=== PATIENT | male | born 1980 | race Caucasian/White ===

== ENCOUNTER 2019-04-05 04:48 | Day surgery (SDC) | payer BC ==
[2019-04-05] MEDS ORDERED: FENTANYL CITR 100 MCG/2 ML ONE ×3 (05:51→11:21)
[2019-04-05 05:58] LABS: Absolute Lymphocytes (CBC) 1.6 K/uL (0.7-4.9); Basophils % 0.4 % (0-1.3); Eosinophils % 2.5 % (0-4.4); Hematocrit 44.1 % (39.6-49.0); Lymphocytes % 10.4 % (15.3-44.8); MPV 9.8 fL (7.6-11.3); Monocytes % 6.9 % (3.3-12.3); RBC Red Blood Cell Count 5.14 M/uL (4.33-5.43)
[2019-04-05 06:10] LABS: ALT/SGPT 26 U/L (12-78); AST/SGOT 16 U/L (15-37); Albumin 3.7 g/dL (3.4-5.0); Alkaline Phosphatase 85 U/L (45-117); BUN Blood Urea Nitrogen 9 mg/dL (7-18); Bicarbonate 27 mmol/L (21-32); Bilirubin Direct < 0.1 mg/dL (0-0.2); Bilirubin Total 0.3 mg/dL (0.2-1.0); Glucose Level 118 mg/dL (74-106); Lipase 138 U/L (73-393); Potassium 3.8 mmol/L (3.5-5.1); Protein, Total 7.1 g/dL (6.4-8.2); Sodium Level 142 mmol/L (136-145)
[2019-04-05 06:12] LABS: Urine Mucus 1+ /HPF (NONE SEEN)
[2019-04-05 06:13] LABS: Urine Bacteria <20 /HPF (NONE SEEN); Urine Culture Reflex Order NOT NEEDED; Urine RBC <5 /HPF (NONE SEEN)
[2019-04-05] MEDS ORDERED: ONDANSETRON 4 MG/2 ML VIAL ONE ×2 (06:42→11:06)
[2019-04-05] MEDS ORDERED: MORPHINE 4 MG/ML SYR ONE (06:42)
--- NOTE | 2019-04-05 08:25 | RAD REPORT ---
EXAM DESCRIPTION: CTAbdomen Pelvis W Contrast - 04/05/2019 6:43 am CLINICAL HISTORY: Abdominal pain. ABD PAIN COMPARISON: No comparisons TECHNIQUE: Biphasic CT imaging of the abdomen and pelvis was performed with 100 ml non-ionic IV cont rast. All CT scans are performed using dose optimization technique as appropriate and may include automated exposure control or mA/KV adjustment according to patient size. FINDINGS: The lung bases are clear. The liver, spleen, pancreas, adrenal glands and kidneys are within normal limits. No bowel obstruction, free air, free fluid or abscess. Several appendicoliths are present the base o f the appendix. The appendix appears dilated to 12 mm with surrounding inflammation compatible with a cute appendicitis. Small containing umbilical hernia. Small bilateral inguinal hernias, larger on the left. No evidence of significant lymphadenopathy. No suspicious bony findings. IMPRESSION: Acute appendicitis.
--- NOTE | 2019-04-05 08:48 | ER ---
Nurse's Notes [facility] Name: Mahad Marks Age: 38 yrs Sex: Male : 1980 Arrival Date: 04/05/2019 Time: 04:52 Bed 6 Private MD: Diagnosis: Acute appendicitis Presentation: 04/05 05:04 Presenting complaint: Patient states: lower abdominal cramping since midnight, radiates tl2 to right side. Pt denies diarrhea, nausea or vomiting. Transition of care: patient was not received from another setting of care. Onset of symptoms was April 05, 2019 at 00:00. Risk Assessment: Do you want to hurt yourself or someone else? Patient reports no desire to harm self or others. Initial Sepsis Screen: Does the patient meet any 2 criteria? No. Patient's initial sepsis screen is negative. Does the patient have a suspected source of infection? No. Patient's initial sepsis screen is negative. Care prior to arrival: None. 05:04 Method Of Arrival: Ambulatory tl2 05:04 Acuity: JORDIN 3 tl2 Triage Assessment: 05:05 General: Appears in no apparent distress. uncomfortable, Behavior is calm, cooperative, tl2 appropriate for age. Pain: Complains of pain in right lower quadrant and left lower quadrant Pain radiates to left side Pain currently is 8 out of 10 on a pain scale. Quality of pain is described as crampy. Neuro: Level of Consciousness is awake, alert, obeys commands, Oriented to person, place, time, situation. GI: Reports lower abdominal pain, cramping, Patient currently denies diarrhea, nausea, vomiting. Historical: - Allergies: 05:05 Codeine; tl2 - Home Meds: 05:05 Metoprolol Tartrate Oral [Active]; Lisinopril Oral [Active]; Dexilant oral oral tl2 [Active]; - PMHx: 05:05 GERD; Hypertension; tl2 - PSHx: 05:05 None; tl2 - Immunization history:: Adult Immunizations up to date. - Social history:: Smoking status: Patient/guardian denies using tobacco. - Ebola Screening: : No symptoms or risks identified at this time. Screenin:07 Abuse screen: Denies threats or abuse. Nutritional screening: No deficits noted. tl2 Tuberculosis screening: No symptoms or risk factors identified. Fall Risk None identified. Assessment: 05:40 General: Appears uncomfortable, Behavior is calm, cooperative, appropriate for age. ea Pain: Complains of pain in left lower quadrant and right lower quadrant. Neuro: Level of Consciousness is awake, alert, obeys commands, Oriented to person, place, time, situation. Cardiovascular: Patient's skin is warm and dry. Respiratory: Airway is patent Respiratory effort is even, unlabored, Respiratory pattern is regular, symmetrical. GI: Abdomen is flat, non-distended, Bowel sounds present X 4 quads. Abd is soft and non tender X 4 quads. Reports lower abdominal pain. Derm: Skin is pink, warm \T\ dry. Musculoskeletal: Circulation, motion, and sensation intact. 06:40 Reassessment: Patient and/or family updated on plan of care and expected duration. Pain ea level reassessed. Patient is alert, oriented x 3, equal unlabored respirations, skin warm/dry/pink. Pt taken to CT. Vital Signs: 05:05 BP 183 / 114; Pulse 86; Resp 18; Temp 98.6(O); Pulse Ox 100% on R/A; Weight 106.59 kg; tl2 Height 6 ft. 1 in. (185.42 cm); Pain 8/10; 06:50 BP 156 / 102; Pulse 80; Resp 18; Pulse Ox 99% on R/A; ea 05:05 Body Mass Index 31.00 (106.59 kg, 185.42 cm) tl2 ED Course: 04:52 Patient arrived in ED. ds1 05:04 Triage completed. tl2 05:05 Arm band placed on right wrist. tl2 05:07 Loan Brooks, RN is Primary Nurse. ea 05:07 Patient has correct armband on for positive identification. Bed in low position. Call tl2 light in reach. Side rails up X 1. Adult w/ patient. 05:29 Mahad Lopez MD is Attending Physician. gs 05:45 Inserted saline lock: 22 gauge in right antecubital area, using aseptic technique. ea Blood collected. 05:49 Radiology exam delayed due to lab results not completed at this time. (BUN/Creatinine). eh 06:[address] via wheelchair. eh 06:43 CT completed. Patient tolerated procedure well. Patient moved back from CT. eh 06:45 CT Abd/Pelvis - IV Contrast Only In Process Unspecified. EDMS 07:00 IV is patent, is intact, with good blood return, Flushed right forearm with 5 ml normal sg saline. IV 20 G R Forearm. 07:18 Primary Nurse role handed off by Loan Brooks RN sg 07:18 Diego Yanez RN is Primary Nurse. sg 07:25 Attending Physician role handed off by Mahad Lopez MD kdr 07:25 Miko Alcaraz MD is Attending Physician. kdr 08:47 Igor Garibay MD is Hospitalizing Provider. kdr 09:16 Consulted physician to see patient. . sg 09:49 No provider procedures requiring assistance completed. Patient admitted, IV remains in sg place. intact, No redness/swelling at site. Administered Medications: 05:45 Drug: fentaNYL (PF) 75 mcg Route: IVP; Site: right forearm; ea 06:14 Follow up: Response: No adverse reaction; Pain is decreased ea 06:30 Drug: morphine 4 mg Route: IVP; Site: right forearm; ea 06:55 Follow up: Response: No adverse reaction; Pain is decreased ea 06:30 Drug: Zofran 4 mg Route: IVP; Site: right forearm; ea 06:55 Follow up: Response: No adverse reaction; Marked relief of symptoms ea 09:10 Drug: Flagyl 500 mg Volume: 100 ml; Route: IVPB; Rate: 200 ml/hr; Infused Over: 30 sg mins; Site: right forearm; 09:10 Drug: morphine 4 mg Route: IVP; Site: right forearm; sg 09:15 Drug: Zosyn 3.375 grams Route: IVPB; Infused Over: 60 mins; Site: right forearm; sg 09:15 Drug: NS 0.9% 1000 ml Route: IV; Rate: 1 bolus; Site: right forearm; sg Outcome: 08:47 Decision to Hospitalize by Provider. kdr 09:49 Admitted to OR accompanied by nurse, accompanied by tech, family with patient, via sg stretcher, with chart. 09:49 Condition: stable 09:49 Instructed on the need for admit, safety practices. 09:49 Patient left the ED. Signatures: Dispatcher [employer] EDMS Diego Yanez RN RN Miko Alcaraz MD MD [facility] Angel Shrestha Tracie Maynard ds1 Liza Barrow RN RN tl2 Loan Brooks RN RN Mahad Barriga MD MD gs
--- NOTE | 2019-04-05 08:49 | EDPHYS ---
Physician Documentation [facility] Name: Mahad Marks Age: 38 yrs Sex: Male : 1980 Arrival Date: 04/05/2019 Time: 04:52 Bed 6 Private MD: ED Physician Miko Alcaraz HPI: 04/05 06:27 This 38 yrs old Male presents to ER via Ambulatory with complaints of gs Abdominal Pain. 06:27 The patient presents with abdominal pain that is diffuse. Onset: The symptoms/episode gs began/occurred yesterday, at 19:00. The symptoms do not radiate. Associated signs and symptoms: Pertinent positives: nausea. The symptoms are described as sharp. Modifying factors: The symptoms are alleviated by nothing, the symptoms are aggravated by movement. Severity of pain: At its worst the pain was severe in the emergency department the pain has improved mildly. The patient has not experienced similar symptoms in the past. Historical: - Allergies: 05:05 Codeine; tl2 - Home Meds: 05:05 Metoprolol Tartrate Oral [Active]; Lisinopril Oral [Active]; Dexilant oral oral tl2 [Active]; - PMHx: 05:05 GERD; Hypertension; tl2 - PSHx: 05:05 None; tl2 - Immunization history:: Adult Immunizations up to date. - Social history:: Smoking status: Patient/guardian denies using tobacco. - Ebola Screening: : No symptoms or risks identified at this time. ROS: 06:27 All other systems are negative. gs 08:48 Constitutional: Negative for fever, chills, and weight loss, Eyes: Negative for injury, kdr pain, redness, and discharge. 08:48 Abdomen/GI: Positive for abdominal pain, vomiting, Negative for black/tarry stool, rectal pain, rectal bleeding. Exam: 06:27 Head/Face: Normocephalic, atraumatic. Eyes: Pupils equal round and reactive to light, gs extra-ocular motions intact. Lids and lashes normal. Conjunctiva and sclera are non-icteric and not injected. Cornea within normal limits. Periorbital areas with no swelling, redness, or edema. ENT: Nares patent. No nasal discharge, no septal abnormalities noted. Tympanic membranes are normal and external auditory canals are clear. Oropharynx with no redness, swelling, or masses, exudates, or evidence of obstruction, uvula midline. Mucous membranes moist. Neck: Trachea midline, no thyromegaly or masses palpated, and no cervical lymphadenopathy. Supple, full range of motion without nuchal rigidity, or vertebral point tenderness. No Meningismus. Chest/axilla: Normal chest wall appearance and motion. Nontender with no deformity. No lesions are appreciated. Cardiovascular: Regular rate and rhythm with a normal S1 and S2. No gallops, murmurs, or rubs. Normal PMI, no JVD. No pulse deficits. Respiratory: Lungs have equal breath sounds bilaterally, clear to auscultation and percussion. No rales, rhonchi or wheezes noted. No increased work of breathing, no retractions or nasal flaring. Back: No spinal tenderness. No costovertebral tenderness. Full range of motion. Male : Normal genitalia with no discharge or lesions. Skin: Warm, dry with normal turgor. Normal color with no rashes, no lesions, and no evidence of cellulitis. MS/ Extremity: Pulses equal, no cyanosis. Neurovascular intact. Full, normal range of motion. Neuro: Awake and alert, GCS 15, oriented to person, place, time, and situation. Cranial nerves II-XII grossly intact. Motor strength 5/5 in all extremities. Sensory grossly intact. Cerebellar exam normal. Normal gait. 06:27 Constitutional: The patient appears alert, awake, uncomfortable. 06:27 Abdomen/GI: Palpation: moderate abdominal tenderness, in the right lower quadrant, rebound tenderness, is not appreciated, Indicators: Rovsing's sign is positive. Vital Signs: 05:05 BP 183 / 114; Pulse 86; Resp 18; Temp 98.6(O); Pulse Ox 100% on R/A; Weight 106.59 kg; tl2 Height 6 ft. 1 in. (185.42 cm); Pain 8/10; 06:50 BP 156 / 102; Pulse 80; Resp 18; Pulse Ox 99% on R/A; ea 05:05 Body Mass Index 31.00 (106.59 kg, 185.42 cm) tl2 MDM: 05:29 Patient medically screened. gs 06:27 Differential diagnosis: appendicitis, bowel obstruction, non-specific abd pain, gs pancreatitis. Data reviewed: vital signs, nurses notes, lab test result(s), radiologic studies. Counseling: I had a detailed discussion with the patient and/or guardian regarding: the historical points, exam findings, and any diagnostic results supporting the discharge/admit diagnosis, lab results, radiology results. 04/05 05:30 Order name: Basic Metabolic Panel; Complete Time: 06:24 04/05 05:30 Order name: CBC with Diff; Complete Time: 06:24 04/05 05:30 Order name: Hepatic Function; Complete Time: 06:24 04/05 05:30 Order name: Lipase; Complete Time: 06:24 04/05 05:30 Order name: Urine Microscopic Only; Complete Time: 06:24 04/05 05:57 Order name: Urine Dipstick--Ancillary (enter results) lp1 04/05 05:30 Order name: CT Abd/Pelvis - IV Contrast Only; Complete Time: 08:40 04/05 05:30 Order name: IV Saline Lock; Complete Time: 05:55 04/05 05:30 Order name: Labs collected and sent; Complete Time: 05:55 04/05 05:30 Order name: Urine Dipstick-Ancillary (obtain specimen); Complete Time: 05:55 04/05 08:56 Order name: NPO EDMS Administered Medications: 05:45 Drug: fentaNYL (PF) 75 mcg Route: IVP; Site: right forearm; ea 06:14 Follow up: Response: No adverse reaction; Pain is decreased ea 06:30 Drug: morphine 4 mg Route: IVP; Site: right forearm; ea 06:55 Follow up: Response: No adverse reaction; Pain is decreased ea 06:30 Drug: Zofran 4 mg Route: IVP; Site: right forearm; ea 06:55 Follow up: Response: No adverse reaction; Marked relief of symptoms ea 09:10 Drug: Flagyl 500 mg Volume: 100 ml; Route: IVPB; Rate: 200 ml/hr; Infused Over: 30 sg mins; Site: right forearm; 09:10 Drug: morphine 4 mg Route: IVP; Site: right forearm; sg 09:15 Drug: Zosyn 3.375 grams Route: IVPB; Infused Over: 60 mins; Site: right forearm; sg 09:15 Drug: NS 0.9% 1000 ml Route: IV; Rate: 1 bolus; Site: right forearm; sg Disposition: 04/05/19 08:47 Hospitalization ordered by Igor Garibay for Inpatient Admission. Preliminary diagnosis is Acute appendicitis. - Bed requested for Telemetry/MedSurg (Inpatient). - Status is Inpatient Admission. sg - Condition is Fair. - Problem is new. - Symptoms have improved. UTI on Admission? No Signatures: Dispatcher [employer] EDMS Diego Yanez RN RN sg Miko Alcaraz MD MD kdr Liza Barrow RN RN tl2 Loan Brooks RN RN Mahad Lopez MD MD gs Corrections: (The following items were deleted from the chart) 09:49 08:47 Hospitalization Ordered by Igor Garibay MD for Inpatient Admission. Preliminary sg diagnosis is Acute appendicitis. Bed requested for Telemetry/MedSurg (Inpatient). Status is Inpatient Admission. Condition is Fair. Problem is new. Symptoms have improved. UTI on Admission? No. kdr
[2019-04-05] MEDS ORDERED: MORPHINE 4 MG/ML SYR IV PRN (08:52)
[2019-04-05] MEDS ORDERED: ONDANSETRON 4 MG/2 ML VIAL IV PRN (08:52)
[2019-04-05] MEDS ORDERED: ACETAMINOPHEN 500 MG TAB PO PRN (08:52)
[2019-04-05] MEDS: D5 0.45 NS 1,000 ML IV SCH ×2 (09:00→17:00)
[2019-04-05] MEDS ORDERED: METRONIDAZOLE 500mg IVPB 500 MG/100 ML BAG IV ONE (09:19)
[2019-04-05] MEDS ORDERED: PIPER/TAZO/NS 3.375gm 3.375 GM/100 ML BAG ONE (09:19)
[2019-04-05 09:36] LABS: Urine Blood NEGATIVE (NEG); Urine Glucose NEGATIVE (NEG); Urine Protein 1+ (NEG); Urine Specific Gravity 1.025 (1.005-1.030)
[2019-04-05] MEDS ORDERED: PROPOFOL 200 MG/20 ML VIAL IV ONE ×2 (10:24→10:41)
[2019-04-05] MEDS ORDERED: LIDOCAINE 2% MPF 5 ML VIAL ONE (10:24)
[2019-04-05] MEDS ORDERED: MIDAZOLAM HCL 2 MG/2 ML INJ ONE (10:24)
[2019-04-05] MEDS ORDERED: ROCURONIUM 50 MG/5 ML VIAL IV ONE (10:24)
[2019-04-05] MEDS ORDERED: Ringers Lactate 1,000 ML IV ONE ×2 (10:25→11:48)
[2019-04-05] MEDS ORDERED: dexAMETHasone 4 MG/ML VIAL ONE (11:06)
[2019-04-05] MEDS ORDERED: GLYCOPYRROLATE 0.2 MG/ML SYR ONE (11:17)
[2019-04-05] MEDS ORDERED: NEOSTIGMINE 1 MG/ML -10 ML VIAL ONE (11:20)
[2019-04-05] MEDS: MEPERIDINE HCL 25 MG/0.5 ML ONE ×2 (11:25→11:35)
--- NOTE | 2019-04-05 15:24 | HP ---
Date of Admission: 04/05/2019 Diagnosis: Acute appendicitis. History Of Present Illness: This is the case of a 38-year-old patient, who comes to us with abdomina l pain, started in the periumbilical area, moved to the right lower quadrant since yesterday about 6 o'clock in the afternoon. He denies any dysuria, hematuria, hematochezia, or melena. He denies any recent traveling out of the country. Denies any family member sick at home. He comes a few hours ag o to the ER since the pain was not getting better. Allergies: CODEINE. Medication: Metoprolol. Medical Problems: Hypertension, GERD. Past Surgical History: None. Social History: He does not smoke. He does not alcohol. Review of Systems: Ten points, otherwise unremarkable. Physical Examination: General: The patient is awake and alert. HEENT: Pupils are equal and reactive, anicteric. Neck: Supple. Chest: Clear. Heart: S1, S2. Abdomen: Right lower quadrant tenderness. No Rovsing sign, but psoas sign is positive. Rectal: Deferred. Genitalia: Deferred. Extremities: Good capillary refill. Neuro: Cranial nerves 2 through 12 grossly within normal limits. Laboratory Data: Blood work shows WBC count of 15, hemoglobin of 14.7, platelets of 203. Chloride i s 109, glucose 118. CAT scan of abdomen and pelvis interpreted by Dr. Alves as acute appendicitis. Also the patient expla ined about the hernias, umbilical and inguinal. Recommendation: The benefits, alternatives, and risks of laparoscopic, possible open appendectomy fu lly explained to the patient, which include but are not limited to infection, bleeding, damage to adj acent structures, anesthesia complication, ME, and even . He also understands this may not reli valeriano his symptoms. He might need more than one surgical intervention. He was also explained when thi s emergency is over he would have to discuss with the primary doctor also his options to have his her nias repair electively. ESAU/TERENCE Voice ID: [id number]
--- NOTE | 2019-05-02 00:53 | OP ---
Date of Procedure: 04/05/2019 Surgeon: Igor Garibay MD Preoperative Diagnosis: Acute appendicitis. Postoperative Diagnoses: Acute appendicitis plus incarcerated umbilical hernia. Procedures: 1.Laparoscopic appendectomy. 2.Open repair of incarcerated umbilical hernia. Anesthesia: General plus local. Findings: Hernia sac in the umbilical area and also with omentum incarceration and also acute append icitis. Indications: This is the case of a 38-year-old patient, comes to the ER, complaining of above diagno sis. I have fully explained the benefits, alternatives, and risks of laparoscopic, possible open elpidio endectomy which include but are not limited to infection, bleeding, damage to adjacent structures, an esthesia complication, UT and even . He also understands this may not relieve the symptoms. He might need more than one surgical intervention. He understands different options he has. He had so me inguinal hernias. I discussed with him to bring it up to my office. We may have to defer that el ectively. Right now, we have an emergency and we have to deal with. So, the benefits and risks full y explained once again. He understood and signed the consent. Description Of Procedure: The patient was brought to the operating room, placed in supine position. Anesthesia was done without complication. Abdominal area was prepped and draped in the usual steril e fashion. Marcaine 0.5% was injected for local anesthetic, followed by sharp incision in the skin i n the periumbilical region. Incision was carried down to subcutaneous tissue. We noticed a hernia s ac present. We opened the hernia sac. Noticed incarcerated omentum. Some adhesions were carefully removed. The omentum was retracted back into the abdominal cavity. Hernia sac was removed. The inc ision was extended to accommodate the Jorge Luis trocar. Vicryl #1 placed inside of the fascia. Jorge Luis trocar was carefully introduced. Pneumoperitoneum was obtained. After that, I placed 2 more trocars , 5 mm each one of them, one in the suprapubic area, another one in the left lower quadrant using miguel e technique, which consisted of local anesthetic, sharp incision of the skin, and introduction of the trocars under direct vision. This allowed me to visualize the area of the appendix and looks inflam ed. So, we created a window in the base of the appendix, transected that with an Endo-LEATHA 45 mm 3.5, and the mesoappendix with an Endo-LEATHA 45 mm 2.5. Appendix removed from abdominal cavity using an En doCatch through the umbilical incision. The area was inspected once again. No bowel leak. No bleed ing at that moment. I proceeded to remove the trocars under direct vision. Deflated the pneumoperit oneum. Closed the fascia with #1 Vicryl. Closed the umbilical hernia also with #1 Vicryl. Irrigate d subcutaneous tissue, closed that with 3-0 Chromic and the skin was approximated. Sponge count and instrument counts were correct. The patient tolerated the procedure well. The patient was sent to r ecovery in stable condition. ESAU/TERENCE Voice ID: [id number] Report ID: [id number]
== END 2019-04-05 18:23 | disposition home or self-care (01) ==
LOC: ER 04:48 → ERHOLD 09:40 → DS 09:40 → UNDOADMIN 09:40 → 4TH 12:04 → DS 18:23
PROVIDERS: ATTEND Surgery
PROC: 0WQF0ZZ Repair Abdominal Wall, Open Approach (ICD-10-PCS; 2019-04-05)
PROC: 0DTJ4ZZ Resection of Appendix, Percutaneous Endoscopic Approach (ICD-10-PCS; principal; 2019-04-05 09:30)
DX: K35.80 Unspecified acute appendicitis (principal); K42.0 Umbilical hernia with obstruction, without gangrene; I10 Essential (primary) hypertension; K21.9 Gastro-esophageal reflux disease without esophagitis; Z79.899 Other long term (current) drug therapy
CPT/HCPCS: 36415; 74177; 80048; 80076; 81003; 81015; 83690; 85025; 88302; 88304; 96374; 96375; 99285; J2175; J2250; J2405; J2543; J2704; J2710; J3010; Q9967

== ENCOUNTER 2020-01-31 15:49 | Emergency (ER) | payer BC ==
--- OUTSIDE RECORDS SUMMARY | 2020-01-31 15:51 | XMS REPORT ---
:1980 Author Organization [facility] t Address [address] [place] [address] Dr. Charles. [address] [place] [id number] Care Team Providers Name Role Phone DR STEPHANIE Unavailable Unavailable Problems This patient has no known problems. Allergies, Adverse Reactions, Alerts This patient has no known allergies or adverse reactions. Medications This patient has no known medications. Encounters Start End Encounter Admission Attending Care Care Encounter Date/Time Date/Time Type Type Clinicians Facility Department ID 2019-09-26 2019-09-26 Outpatient [facility] Bushra [id number] 07:36:00 13:00:00
--- NOTE | 2020-01-31 16:32 | ER ---
Nurse's Notes [facility] Name: Mahad Marks Age: 39 yrs Sex: Male : 1980 Arrival Date: 01/31/2020 Time: 15:49 Bed 13 Private MD: Ambrosio Rodriguez Diagnosis: Person with feared health complaint in whom no diagnosis is made Presentation: 01/30 16:03 Chief complaint: Patient states: "I take testosterone shots every two weeks, a friend vc was giving me my shot and the needle came off the syringe into me. We looked on the ground to see if it fell off but could not find it.". Coronavirus screen: Proceed with normal triage. Ebola Screen: No symptoms or risks identified at this time. Initial Sepsis Screen: Does the patient meet any 2 criteria? No. Patient's initial sepsis screen is negative. Does the patient have a suspected source of infection? No. Patient's initial sepsis screen is negative. Risk Assessment: Do you want to hurt yourself or someone else? Patient reports no desire to harm self or others. Onset of symptoms was January 31, 2020. 16:03 Method Of Arrival: Ambulatory vc 16:03 Acuity: JORDIN 4 vc Historical: - Allergies: 16:10 Codeine; vc - Home Meds: 16:10 Dexilant Oral [Active]; lisinopril Oral [Active]; Metoprolol Tartrate Oral [Active]; vc testosterone IM [Active]; - PMHx: 16:10 GERD; Hypertension; Hyperlipidemia; vc - PSHx: 16:10 Appendectomy; vc - Immunization history:: Adult Immunizations up to date. - Social history:: Smoking status: Patient denies any tobacco usage or history of. Assessment: 16:29 Reassessment: Patient states that the needle is still in syringe. Medical screening vc shows no emergency, patient declines treatment. Vital Signs: 16:03 BP 120 / 96; Pulse 72; Resp 17; Temp 98.6(TE); Pulse Ox 99% on R/A; Weight 102.06 kg; vc Height 6 ft. 0 in. (182.88 cm); 16:03 Body Mass Index 30.52 (102.06 kg, 182.88 cm) vc ED Course: 15:49 Patient arrived in ED. am2 15:50 Ambrosio Rodriguez MD is Private Physician. am2 15:57 Margarita Kwok, RN is Primary Nurse. 16:05 [facility] 16:05 Eric Tom MD is Attending Physician. [facility] 16:07 Triage completed. vc Administered Medications: No medications were administered Outcome: 16:30 Discharge ordered by . [facility] 16:32 Patient left the ED. vc Signatures: Ed Warren PA PA [facility] Kayla Fay 2 Margarita Kwok, RN RN vc
--- NOTE | 2020-01-31 16:32 | EDPHYS ---
Physician Documentation [facility] Name: Mahad Marks Age: 39 yrs Sex: Male : 1980 Arrival Date: 01/31/2020 Time: 15:49 Bed 13 Private MD: Ambrosio Rodriguez ED Physician Eric Tom HPI: 01/30 16:11 This 39 yrs old Male presents to ER via Ambulatory with complaints of Foreign jmm Body - needle in buttock. 16:11 Onset: The symptoms/episode began/occurred acutely, just prior to arrival. The patient jmm has not experienced similar symptoms in the past. This is a 39 year old male with a history of GERD, HTN, HLP that presents to the ED with complaints of needle stuck on his buttocks after a testosterone injection. . Historical: - Allergies: 16:10 Codeine; vc - Home Meds: 16:10 Dexilant Oral [Active]; lisinopril Oral [Active]; Metoprolol Tartrate Oral [Active]; vc testosterone IM [Active]; - PMHx: 16:10 GERD; Hypertension; Hyperlipidemia; vc - PSHx: 16:10 Appendectomy; vc - Immunization history:: Adult Immunizations up to date. - Social history:: Smoking status: Patient denies any tobacco usage or history of. ROS: 16:11 Constitutional: Negative for fever, chills, and weight loss, Cardiovascular: Negative jmm for chest pain, palpitations, and edema, Respiratory: Negative for shortness of breath, cough, wheezing, and pleuritic chest pain. 16:11 MS/extremity: Positive for fb sensation. 16:11 All other systems are negative. Exam: 16:11 Constitutional: This is a well developed, well nourished patient who is awake, alert, jmm and in no acute distress. Head/Face: atraumatic. Eyes: EOMI, no conjunctival erythema appreciated ENT: Moist Mucus Membranes Neck: Trachea midline, Supple Chest/axilla: Normal chest wall appearance and motion. Cardiovascular: Regular rate and rhythm. No edema appreciated Respiratory: Normal respirations, no respiratory distress appreciated Abdomen/GI: Non distended, soft Back: Normal ROM Skin: General appearance color normal MS/ Extremity: Moves all extremities, no obvious deformities appreciated, no edema noted to the lower extremities Neuro: Awake and alert, normal gait Psych: Behavior is normal, Mood is normal, Patient is cooperative and pleasant Vital Signs: 16:03 BP 120 / 96; Pulse 72; Resp 17; Temp 98.6(TE); Pulse Ox 99% on R/A; Weight 102.06 kg; vc Height 6 ft. 0 in. (182.88 cm); 16:03 Body Mass Index 30.52 (102.06 kg, 182.88 cm) vc MDM: 16:11 Patient medically screened. [facility] 16:11 Data reviewed: vital signs, nurses notes. [facility] 16:11 Counseling: I had a detailed discussion with the patient and/or guardian regarding: the [facility] historical points, exam findings, and any diagnostic results supporting the discharge/admit diagnosis, the need for outpatient follow up, to return to the emergency department if symptoms worsen or persist or if there are any questions or concerns that arise at home. ED course: RN notified the patient the syringe has a retractable needle. Needle was revealed to still be in the syringe. . Administered Medications: No medications were administered Disposition: 01/31 07:17 Co-signature as Attending Physician, Eric Tom MD Available for consultation . ps1 Disposition: 01/31/20 16:30 Discharged to Home as Medical Screen. Impression: Person with feared health complaint in whom no diagnosis is made. - Condition is Stable. - Medication Reconciliation Form, Thank You Letter, Antibiotic Education, Prescription Opioid Use form. - Follow up: Private Physician; When: As needed. Signatures: Ed Warren PA PA jmm Singer, Phillip, MD MD ps1 Margarita Kwok RN RN vc Corrections: (The following items were deleted from the chart) 01/30 16:32 16:30 01/31/2020 16:30 Discharged to Home as Medical Screen. Impression: Person with vc feared health complaint in whom no diagnosis is made. Condition is Stable. Forms are Medication Reconciliation Form, Thank You Letter, Antibiotic Education, Prescription Opioid Use. Follow up: Private Physician; When: As needed. moriah
[2020-01-31 16:35] VITALS: BP 120/96; TEMP 98.6; O2SAT 99
== END 2020-01-31 16:32 | disposition home or self-care (01) ==
LOC: ER 15:49
DX: Z71.1 Person with feared health complaint in whom no diagnosis is made (principal); I10 Essential (primary) hypertension; E78.5 Hyperlipidemia, unspecified; K21.9 Gastro-esophageal reflux disease without esophagitis; Z79.899 Other long term (current) drug therapy
CPT/HCPCS: 99281

== ENCOUNTER 2023-02-15 08:43 | Day surgery (SDC) | payer BC ==
[2023-02-15] MEDS ORDERED: CEFAZOLIN SODIUM 1 GM/VIAL ONE (09:18)
[2023-02-15] MEDS ORDERED: Ringers Lactate 1,000 ML IV ONE ×2 (09:19→13:58)
--- NOTE | 2023-02-15 09:27 | RAD REPORT ---
EXAM DESCRIPTION: RAD - Chest Pa And Lat (2 Views) - 02/15/2023 9:18 am CLINICAL HISTORY: PREOP COMPARISON: CHEST PA AND LAT 2 VIEW dated 02/07/2013 FINDINGS: Lines: None. Lungs: No evidence of edema or pneumonia. Pleural: No significant pleural effusions or pneumothorax. Cardiac: The heart size is within normal limits. Mediastinum: Within normal limits. Bones: No acute fractures. Other: None IMPRESSION: No acute cardiopulmonary disease.
[2023-02-15 09:54] LABS: Absolute Lymphocytes (CBC) 1.9 K/uL (0.7-4.9); Lymphocytes % 31.8 % (15.3-44.8); MPV 9.4 fL (7.6-11.3); RBC Red Blood Cell Count 5.05 M/uL (4.33-5.43)
[2023-02-15 10:06] LABS: Potassium 3.6 mEq/L (3.5-5.1)
[2023-02-15] MEDS ORDERED: propofoL 200 MG/20 ML VIAL IV ONE (10:56)
[2023-02-15] MEDS ORDERED: FENTANYL CITR 100 MCG/2 ML ONE ×2 (10:56→12:06)
[2023-02-15] MEDS ORDERED: ROCURONIUM 50 MG/5 ML VIAL IV ONE ×2 (10:57→13:07)
[2023-02-15] MEDS ORDERED: ONDANSETRON 4 MG/2 ML VIAL ONE (10:57)
[2023-02-15] MEDS ORDERED: LIDOCAINE 2% MPF 5 ML VIAL ONE (10:57)
[2023-02-15] MEDS ORDERED: MIDAZOLAM HCL 2 MG/2 ML INJ ONE (11:02)
[2023-02-15] MEDS ORDERED: SUGAMMADEX SODIUM 200 MG/2 ML VIAL IV ONE (12:09)
--- NOTE | 2023-02-15 12:37 | EKG ---
Test Date: 2023-02-15 Test Time: 09:48:07 [employer] P8 Developer: LEOBARDO MEASUREMENT RESULTS: Intervals: Rate: 55 WY: 180 QRSD: 88 QT: 400 QTc: 382 [place]: P: 32 WY: 180 QRS: -5 T: 39 INTERPRETIVE STATEMENTS: Sinus bradycardia with sinus arrhythmia Otherwise normal ECG No previous ECG available for comparison Electronically Signed On 02-15-23 12:36:57 CDT by Sidney Young
[2023-02-15] MEDS ORDERED: NEOSTIGMINE 1 MG/ML -10 ML VIAL ONE (13:32)
[2023-02-15] MEDS ORDERED: GLYCOPYRROLATE 0.2 MG/ML SYR ONE (13:32)
--- NOTE | 2023-02-15 13:33 | P.BOP ---
Preoperative diagnosis: bilateral inguinal and umbilical hernia Postoperative diagnosis: same Primary procedure: 1. Laparoscopic repair of left inguinal hernia with mesh Secondary procedure: 2. Laparoscopic repair of Right inguinal hernia with mesh Other procedure(s): 3. Laparoscopic repair of umbilical hernia with mesh 2cm Steel Die Press Set Up Operator: KORTNEY DAILEY (EFFICIENCY ENGINEER) Estimated blood loss: <20cc Specimen: hernia sac Findings: as above Anesthesia: General Complications: None Implants: 3D mesh bilateral inguinal, ventralex umbilical Transferred to: Recovery Room Condition: Good
[2023-02-15] MEDS ORDERED: KETOROLAC 30 MG/ML INJ ONE (13:41)
[2023-02-15] MEDS ORDERED: MEPERIDINE HCL 25 MG/ML SYR ONE ×2 (13:45→13:55)
[2023-02-15] MEDS: HYDROMORPHONE HCL 1 MG/ML INJ ONE ×2 (14:01→14:16)
[2023-02-15 14:41] VITALS: BP 137/71; TEMP 97.5; O2SAT 96
--- NOTE | 2023-02-18 08:55 | OP ---
Date of Procedure: 02/17/2023 Surgeon: Igor Garibay MD Gumming Machine Operator: Samaria Barrera. Preoperative Diagnosis: Tender bilateral inguinal and umbilical hernia. Postoperative Diagnosis: Tender bilateral inguinal and umbilical hernia. Procedures: 1.Laparoscopic repair of left inguinal hernia with mesh. 2.Laparoscopic repair of right inguinal hernia with mesh. 3.Laparoscopic repair of umbilical hernia with mesh, 2 cm. Estimated Blood Loss: Less than 20 cc. Specimen: Hernia sac on the umbilical region. Findings: The patient has 3 different problems. The left and right inguinal areas have enlarged inc arcerated fatty tissue on them. The umbilical hernia cannot be repaired with the same incisions as l aparoscopic inguinal, we have to go a little bit higher, seems to be area away from the previous inci sky, but nearby. The hernia in the umbilical region on its own, we have to go intraperitoneally dif ferent from the other 2 defects and put new trocars to be able to address since the defect is a littl e bit larger and required mesh in that region. Complications: None. Implant: 3D mesh in bilateral inguinal regions and Ventralex mesh on the umbilical area. Indication: This is the case of a 42-year-old patient with 3 hernias. Benefits, alternatives, and r isks of repair laparoscopic versus open with possible mesh fully explained, which include, but not li mited to infection, bleeding, damage to adjacent structures, anesthesia complication, recurrence, chr onic pain, chronic numbness, WA, and even . He also understood this may not relieve any symptom s. He might need more than one surgical intervention. He understood. He also understands we might be using mesh for those areas. The pros and cons of mesh placement were discussed with the patient. All the questions were answered to his satisfaction. He signed a consent. He understand also we wi ll be giving him also some Flomax, which is a medication trying to help urinate at the end due to the size of those hernias and possibility of repeat urinary retention. We also explained to him how imp ortant it is for him to lose some weight. He signed the consent. Procedure In Detail: The patient was brought to the operating room, placed in supine position. Anes thesia was done without complication. Abdominal and inguinal region were prepped and draped in the u sual sterile fashion. Local anesthesia was applied in the infraumbilical region. The incision was c arried down until we found the anterior rectus sheath that was opened and then the muscle retracted l aterally to expose the posterior rectus sheath. The extraperitoneal space was gently developed with the help of blunt dissection and then a Spacemaker balloon-tipped trocar placed in that area and dire cted to the pubis symphysis. Due to his size, we have to use the bilateral balloons, but then also w e have to have a single balloon to dissect it laterally. The balloon was deflated and removed once a gain under direct visualization and the area was inflated again. Under direct visualization, we put a 5 mm trocar in the area of the pubis symphysis and another penitentiary between the first and the second one. The preperitoneal space of the right side was further developed first by opposing the inferior epigastric vessels, keeping them anterior. Gio ligament was dissected laterally to the junction with the iliac veins. The dissection continued inferiorly to the iliopubic tract avoiding damage to the femoral branch of the genitofemoral nerve and lateral femoral cutaneous nerve. The cord structur es were carefully identified and skeletonized. The sac was identified and retracted back into the ab dominal cavity. We noticed in that area to have direct and indirect hernias. The direct hernias wer e full with a large amount of fatty tissue that was carefully reduced. The hernia sac was reduced ba ck into the peritoneal cavity. Then, after that, we went to the left side. Once again, the inferior epigastric vessels were kept anterior and Gio ligament dissected laterally to the junction with t he iliac veins and dissection continued inferiorly to the iliopubic tract also avoiding damage to the femoral branch of the genitofemoral nerve and lateral femoral cutaneous nerve. The cord structures were carefully skeletonized. Once again, we have the fatty tissue going through the direct defect an d then the indirect hernia reduced back into the abdominal cavity after removing it from the spermati c cord structures. At that moment, we proceeded to select a medium mesh in left and right side indiv idually 3D and placed in the working space. Each was done individually, but using same technique, wh ich was consisted of rolling this mesh into a complex cylinder passing that through the camera trocar . The mesh was placed along the inferior aspect and then to cover direct and indirect spaces. The m esh was secured in place with SorbaFix fixation device lateral and superior to the iliopubic tract an d inferior and medial to the Gio ligament. The same was done with the opposite side. After ensur ing complete hemostasis, we proceeded then while holding the mesh in place allowing the air to escape under direct visualization. The trocars were removed, the camera was removed, and the anterior rect us sheath was closed with #1 Vicryl in a [id number] fashion. Unfortunately, the defects of the umbilical region, supraumbilical and we could not address the issue through this area. So, we have t o make an incision in the supraumbilical region. The incision was carried down until we find the her adebayo. When we were going over there, we noticed the fascial edges were not strong enough to hold stit ches, so we cleaned that area of the devitalized tissue and then through that defects put a Jorge Luis tr ocar and this allowed me to put a trocar on the left and right side of the abdomen 5 mm under direct visualization. Under this condition, we were able then to see the defects better and we selected a V entralex mesh, medium size to put in that area to cover the defects about 3 to 5 cm. At that moment, I proceeded to put the mesh through and removed the Jorge Luis trocar, secured the mesh in place anterio rly to the peritoneum with SorbaFix fixation device. The mesh straps were removed and then we furthe r secured the mesh in place circumferentially. After that, we approximated the fascial defects with #1 Vicryl in a [id number] fashion. The area was irrigated. Subcutaneous tissue was closed with 3-0 chromic. Once again, we inspected inside. There was no bleeding. At that moment, I proceeded then to deflate the pneumoperitoneum, removed the 5 mm trocars and closed the subcutaneous tissue and the skin was approximated with kevin. Sponge count, instrument counts correct. The patient tolerated the procedure well. The patient was sent to recovery in stable condition. ESAU/TERENCE Voice ID: [id number] Report ID: [id number]
--- NOTE | 2023-02-18 08:55 | DS ---
Date of Discharge: 02/15/2023 Diagnosis: Bilateral inguinal and umbilical hernia. Procedure: Laparoscopic repair of left inguinal, right inguinal and umbilical hernia with mesh, each 1 individually. Disposition: Home. Activity: As tolerated. No heavy lifting. Plan: Follow up in my office in 1 week. Call for appointment [facility] [phone]. Medications were called t o his pharmacy. He was advised about abdominal binders and cold compress. ESAU/TERENCE Voice ID: [id number] Report ID: [id number]
== END 2023-02-15 15:50 | disposition home or self-care (01) ==
LOC: OR 08:43
PROVIDERS: ATTEND Surgery
PROC: 0YUA4JZ Supplement Bilateral Inguinal Region with Synthetic Substitute, Percutaneous Endoscopic Approach (ICD-10-PCS; 2023-02-15)
PROC: 0WUF4JZ Supplement Abdominal Wall with Synthetic Substitute, Percutaneous Endoscopic Approach (ICD-10-PCS; principal; 2023-02-15 11:45)
DX: K40.20 Bilateral inguinal hernia, without obstruction or gangrene, not specified as recurrent (principal); K42.9 Umbilical hernia without obstruction or gangrene
CPT/HCPCS: 49591; 49650; 93005; 85025; 80048; 36415; 88302; 71046; J2704; J2710; J2001; J2250; J3010 ×2; J2175 ×2; J1170; J2405; J7120 ×2; J0690

== ENCOUNTER 2023-02-15 21:23 | Emergency (ER) | payer BC ==
--- OUTSIDE RECORDS SUMMARY | 2023-02-15 21:27 | XMS REPORT | Continuity of Care Document ---
:1980 Author Organization [facility] t Address [address] [place] [address] Care Team Providers Name Role Phone DEMETRIA Attending Clinician Unavailable Jeramie [place] Attending Clinician [phone] Efra Gomes Attending Clinician DR JONNY BROWN Attending Clinician Unavailable DEMETRIA Admitting Clinician Unavailable DR JONNY BROWN Admitting Clinician Unavailable Payers Payer Name Policy Type Policy Number Effective Date Expiration Date S brand[place] [id number] 2018 00:00:00 [place] Problems Condition Condition Condition Status Onset Resolution Last Treating Co mments Source Name Details Category Date Date Treatment Clinician Date Hyperlipid Hyperlipi Problem Active 2019-09-30 Memoria emia demia 23:03:50 l (disorder) (disorder) He rmann Active Problem 09/30/2019 [facility] Hypertensi Hypertens Problem Active 2019-09-30 Memoria ve ezekiel 23:03:50 l disorder, disorder, Herm gurvinder systemic systemic arterial arterial (disorder) (disorder) Active Problem 09/30/2019 [facility] Simple Simple Problem Active 2019-09-30 Varun sonya obesity obesity 23:03:50 l (disorder) (disorder) He rmann Active Problem 09/30/2019 [facility] Tremor Tremor Problem Active 2019-09-30 Varun sonya (finding) (finding) 23:03:50 l Active [place] Problem 09/30/2019 [facility] Allergies, Adverse Reactions, Alerts Allergy Allergy Status Severity Reaction(s) Onset Inactive Treating Comm ents Source Name Type Date Date Clinician codeine codeine Active Booker Niño Social History Social Habit Start Date Stop Date Quantity Comments Source Social History 2019-08-10 2019-08-10 [facility] 20:19:16 20:19:16 Smoking Status Start Date Stop Date Source Never Smoker [facility] Medications Ordered Filled Start Stop Current Ordering Indication Dosage Frequency Signature Comments Components Source Medication Medication Date Date Medication? Clinician (SIG) Name Name Dexilant 2018-10 Yes PO, Daily, Mem oria 0-24 0 l 20:20: Refill(s) Lisinopril 2018-10 Yes PO, Daily, M emoria 0-24 0 l 20:20: Refill(s) Lipitor 2018-10 Yes PO, Daily, Varun sonya 0-24 0 l 20:20: Refill(s) Dexilant 60 Dexilant 60 No Dexilant [place] mg capsule, mg capsule, 60 mg Communi delayed delayed capsule, ty release release delayed Hospit a TAKE 1 TAKE 1 release l CAPSULE BY CAPSULE BY TAKE 1 C linics MOUTH EVERY MOUTH EVERY CAPSULE BY DAY DAY MOUTH EVERY DAY lisinopril lisinopril No lisinopril [place] 20 20 20 Communi mg-hydrochl mg-hydrochl mg-hydroch ty orothiazide orothiazide [facility] 12.5 mg 12.5 mg de 12.5 mg l tablet ORAL tablet ORAL tablet Clinics TAKE 2 TAKE 2 ORAL TAKE TABLETS BY TABLETS BY 2 TABLETS MOUTH EVERY MOUTH EVERY BY MOUTH DAY..PATIEN DAY..PATIEN EVERY T DUE FOR T DUE FOR DAY..PATIE LABS AND LABS AND NT DUE FOR OFFICE OFFICE LABS AND VISIT VISIT OFFICE VISIT metoprolol metoprolol No metoprolol [place] succinate succinate succinate Communi ER 50 mg ER 50 mg ER 50 mg ty tablet,exte tablet,exte tablet,ext Hospita nded nded ended l release 24 release 24 release 24 Clinics hr TAKE 1 hr TAKE 1 hr TAKE 1 TABLET BY TABLET BY TABLET BY MOUTH EVERY MOUTH EVERY MOUTH DAY DAY EVERY DAY atorvastati atorvastati No atorvastat [place] n 20 mg n 20 mg in 20 mg Commu ni tablet TAKE tablet TAKE tablet ty 1 TABLET BY 1 TABLET BY TAKE 1 Hospita MOUTH EVERY MOUTH EVERY TABLET BY l DAY DAY MOUTH Clinics EVERY DAY chlorhexidi chlorhexidi No chlorhexid [place] ne ne ine Communi gluconate gluconate gluconate ty 0.12 % 0.12 % 0.12 % Hospita mouthwash mouthwash mouthwash l PLEASE SEE PLEASE SEE PLEASE SEE Clinics ATTACHED ATTACHED ATTACHED FOR FOR FOR DETAILED DETAILED DETAILED DIRECTIONS DIRECTIONS DIRECTIONS cyclobenzap cyclobenzap No cyclobenza [place] rine 5 mg rine 5 mg som 5 mg Communi tablet TAKE tablet TAKE tablet ty 1 TABLET BY 1 TABLET BY TAKE 1 Hospita MOUTH AT MOUTH AT TABLET BY l BEDTIME FOR BEDTIME FOR MOUTH AT Clinics 14 NIGHTS 14 NIGHTS BEDTIME FOR 14 NIGHTS Dexilant 60 Dexilant 60 No Dexilant [place] mg capsule, mg capsule, 60 mg Communi delayed delayed capsule, ty release release delayed Hospit a TAKE 1 TAKE 1 release l CAPSULE BY CAPSULE BY TAKE 1 C linics MOUTH EVERY MOUTH EVERY CAPSULE BY DAY DAY MOUTH EVERY DAY ibuprofen ibuprofen No ibuprofen [place] 800 mg 800 mg 800 mg Communi tablet TAKE tablet TAKE tablet ty 1 TABLET BY 1 TABLET BY TAKE 1 Hospita MOUTH EVERY MOUTH EVERY TABLET BY l 8 HOURS 8 HOURS MOUTH Clinics UNTIL UNTIL EVERY 8 INFLAMMATIO INFLAMMATIO HOURS N SUBSIDES N SUBSIDES UNTIL OR OR INFLAMMATI NEEDED FOR NEEDED FOR ON PAIN PAIN SUBSIDES OR NEEDED FOR PAIN lisinopril lisinopril No lisinopril [place] 20 20 20 Communi mg-hydrochl mg-hydrochl mg-hydroch ty orothiazide [facility]ide [facility] 12.5 mg 12.5 mg de 12.5 mg l tablet TAKE tablet TAKE tablet Clinics 2 TABLETS 2 TABLETS TAKE 2 BY MOUTH BY MOUTH TABLETS BY EVERY DAY EVERY DAY MOUTH EVERY DAY metoprolol metoprolol No metoprolol [place] succinate succinate succinate Communi ER 50 mg ER 50 mg ER 50 mg ty tablet,exte tablet,exte tablet,ext Hospita nded nded ended l release 24 release 24 release 24 Clinics hr TAKE 1 hr TAKE 1 hr TAKE 1 TABLET BY TABLET BY TABLET BY MOUTH EVERY MOUTH EVERY MOUTH DAY DAY EVERY DAY sulfamethox sulfamethox No 1 Q12H sulfametho [place] azole 800 azole 800 xazole 800 Communi mg-trimetho mg-trimetho mg-trimeth ty prim 160 mg prim 160 mg oprim 160 Hospita tablet Take tablet Take mg tablet l 1 tablet 1 tablet Take 1 Clini cs every 12 every 12 tablet hours by hours by every 12 oral route oral route hours by for 3 days. for 3 days. oral route for 3 days. atorvastati atorvastati No atorvastat [place] n 20 mg n 20 mg in 20 mg Commu ni tablet TAKE tablet TAKE tablet ty 1 TABLET BY 1 TABLET BY TAKE 1 Hospita MOUTH EVERY MOUTH EVERY TABLET BY l DAY DAY MOUTH Clinics EVERY DAY chlorhexidi chlorhexidi No chlorhexid [place] ne ne ine Communi gluconate gluconate gluconate ty 0.12 % 0.12 % 0.12 % Hospita mouthwash mouthwash mouthwash l PLEASE SEE PLEASE SEE PLEASE SEE Clinics ATTACHED ATTACHED ATTACHED FOR FOR FOR DETAILED DETAILED DETAILED DIRECTIONS DIRECTIONS DIRECTIONS cyclobenzap cyclobenzap No cyclobenza [place] rine 5 mg rine 5 mg som 5 mg Communi tablet TAKE tablet TAKE tablet ty 1 TABLET BY 1 TABLET BY TAKE 1 Hospita MOUTH AT MOUTH AT TABLET BY l BEDTIME FOR BEDTIME FOR MOUTH AT Clinics 14 NIGHTS 14 NIGHTS BEDTIME FOR 14 NIGHTS Dexilant 60 Dexilant 60 No Dexilant [place] mg capsule, mg capsule, 60 mg Communi delayed delayed capsule, ty release release delayed Hospit a TAKE 1 TAKE 1 release l CAPSULE BY CAPSULE BY TAKE 1 C linics MOUTH EVERY MOUTH EVERY CAPSULE BY DAY DAY MOUTH EVERY DAY ibuprofen ibuprofen No ibuprofen [place] 800 mg 800 mg 800 mg Communi tablet TAKE tablet TAKE tablet ty 1 TABLET BY 1 TABLET BY TAKE 1 Hospita MOUTH EVERY MOUTH EVERY TABLET BY l 8 HOURS 8 HOURS MOUTH Clinics UNTIL UNTIL EVERY 8 INFLAMMATIO INFLAMMATIO HOURS N SUBSIDES N SUBSIDES UNTIL OR OR INFLAMMATI NEEDED FOR NEEDED FOR ON PAIN PAIN SUBSIDES OR NEEDED FOR PAIN ketoconazol ketoconazol No ketoconazo [place] e 2 % e 2 % le 2 % Communi topical topical topical ty cream cream cream Hospita l Clinics lisinopril lisinopril No lisinopril [place] 20 20 20 Communi mg-hydrochl mg-hydrochl mg-hydroch ty orothiazide orothiazide [facility] 12.5 mg 12.5 mg de 12.5 mg l tablet TAKE tablet TAKE tablet Clinics 2 TABLETS 2 TABLETS TAKE 2 BY MOUTH BY MOUTH TABLETS BY EVERY DAY EVERY DAY MOUTH EVERY DAY metoprolol metoprolol No metoprolol [place] succinate succinate succinate Communi ER 50 mg ER 50 mg ER 50 mg ty tablet,exte tablet,exte tablet,ext Hospita nded nded ended l release 24 release 24 release 24 Clinics hr TAKE 1 hr TAKE 1 hr TAKE 1 TABLET BY TABLET BY TABLET BY MOUTH EVERY MOUTH EVERY MOUTH DAY DAY EVERY DAY sulfamethox sulfamethox No sulfametho [place] azole 800 azole 800 xazole 800 Communi mg-trimetho mg-trimetho mg-trimeth ty prim 160 mg prim 160 mg oprim 160 Hospita tablet Take tablet Take mg tablet l 1 tablet 1 tablet Take 1 Clini cs every 12 every 12 tablet hours by hours by every 12 oral route oral route hours by for 3 days. for 3 days. oral route for 3 days. atorvastati atorvastati No atorvastat [place] n 20 mg n 20 mg in 20 mg Commu ni tablet TAKE tablet TAKE tablet ty 1 TABLET BY 1 TABLET BY TAKE 1 Hospita MOUTH EVERY MOUTH EVERY TABLET BY l DAY DAY MOUTH Clinics EVERY DAY chlorhexidi chlorhexidi No chlorhexid [place] ne ne ine Communi gluconate gluconate gluconate ty 0.12 % 0.12 % 0.12 % Hospita mouthwash mouthwash mouthwash l PLEASE SEE PLEASE SEE PLEASE SEE Clinics ATTACHED ATTACHED ATTACHED FOR FOR FOR DETAILED DETAILED DETAILED DIRECTIONS DIRECTIONS DIRECTIONS cyclobenzap cyclobenzap No cyclobenza [place] rine 5 mg rine 5 mg som 5 mg Communi tablet TAKE tablet TAKE tablet ty 1 TABLET BY 1 TABLET BY TAKE 1 Hospita MOUTH AT MOUTH AT TABLET BY l BEDTIME FOR BEDTIME FOR MOUTH AT Clinics 14 NIGHTS 14 NIGHTS BEDTIME FOR 14 NIGHTS Dexilant 60 Dexilant 60 No Dexilant [place] mg capsule, mg capsule, 60 mg Communi delayed delayed capsule, ty release release delayed Hospit a TAKE 1 TAKE 1 release l CAPSULE BY CAPSULE BY TAKE 1 C linics MOUTH EVERY MOUTH EVERY CAPSULE BY DAY DAY MOUTH EVERY DAY ibuprofen ibuprofen No ibuprofen [place] 800 mg 800 mg 800 mg Communi tablet TAKE tablet TAKE tablet ty 1 TABLET BY 1 TABLET BY TAKE 1 Hospita MOUTH EVERY MOUTH EVERY TABLET BY l 8 HOURS 8 HOURS MOUTH Clinics UNTIL UNTIL EVERY 8 INFLAMMATIO INFLAMMATIO HOURS N SUBSIDES N SUBSIDES UNTIL OR OR INFLAMMATI NEEDED FOR NEEDED FOR ON PAIN PAIN SUBSIDES OR NEEDED FOR PAIN ketoconazol ketoconazol No ketoconazo [place] e 2 % e 2 % le 2 % Communi topical topical topical ty cream cream cream Hospita l Clinics lisinopril lisinopril No lisinopril [place] 20 20 20 Communi mg-hydrochl mg-hydrochl mg-hydroch ty orothiazide orothiazide [facility] 12.5 mg 12.5 mg de 12.5 mg l tablet TAKE tablet TAKE tablet Clinics 2 TABLETS 2 TABLETS TAKE 2 BY MOUTH BY MOUTH TABLETS BY EVERY DAY EVERY DAY MOUTH EVERY DAY metoprolol metoprolol No metoprolol [place] succinate succinate succinate Communi ER 50 mg ER 50 mg ER 50 mg ty tablet,exte tablet,exte tablet,ext Hospita nded nded ended l release 24 release 24 release 24 Clinics hr TAKE 1 hr TAKE 1 hr TAKE 1 TABLET BY TABLET BY TABLET BY MOUTH EVERY MOUTH EVERY MOUTH DAY DAY EVERY DAY sulfamethox sulfamethox No sulfametho [place] azole 800 azole 800 xazole 800 Communi mg-trimetho mg-trimetho mg-trimeth ty prim 160 mg prim 160 mg oprim 160 Hospita tablet Take tablet Take mg tablet l 1 tablet 1 tablet Take 1 Clini cs every 12 every 12 tablet hours by hours by every 12 oral route oral route hours by for 3 days. for 3 days. oral route for 3 days. Vital Signs Vital Name Observation Time Observation Value Comments Source Height 2021-12-17 00:00:00 73 [in_i] [facility] BP Diastolic 2021-12-11 00:00:00 94 mm[Hg] [facility] Height 2021-12-11 00:00:00 73 [in_i] [facility] BMI (Body Mass 2021-12-11 00:00:00 31.2 kg/m2 [facility] BP Systolic 2021-12-11 00:00:00 145 mm[Hg] [facility] Body Weight 2021-12-11 00:00:00 3781 [oz_av] [facility] s BP Diastolic 2021-09-23 00:00:00 95 mm[Hg] [facility] Height 2021-09-23 00:00:00 73 [in_i] [facility] BMI (Body Mass 2021-09-23 00:00:00 30.7 kg/m2 [facility] s BP Systolic 2021-09-23 00:00:00 128 mm[Hg] [facility] Body Weight 2021-09-23 00:00:00 3728 [oz_av] [facility] BP Diastolic 2020-12-24 00:00:00 96 mm[Hg] [facility] Height 2020-12-24 00:00:00 73 [in_i] [facility] s BMI (Body Mass 2020-12-24 00:00:00 31.7 kg/m2 [facility]) [facility] BP Systolic 2020-12-24 00:00:00 141 mm[Hg] [facility] Body Weight 2020-12-24 00:00:00 3840 [oz_av] [facility] Systolic (mm Hg) 2019-08-17 20:39:00 Varun rial [place] Diastolic (mm Hg) 2019-08-17 20:39:00 Mem orial [place] Heart Rate 2019-08-17 20:39:00 [facility] Respitory Rate 2019-08-17 20:39:00 Memori al [place] Height 2019-08-17 20:39:00 185.42 cm [facility] [place] Weight 2019-08-17 20:39:00 [facility] [place] BMI Calculated 2019-08-17 20:39:00 Memori al [place] Systolic (mm Hg) 2019-08-10 20:15:00 Varun rial [place] Diastolic (mm Hg) 2019-08-10 20:15:00 Mem orial [place] Heart Rate 2019-08-10 20:15:00 [facility] [place] Respitory Rate 2019-08-10 20:15:00 Mem[facility] al [place] Height 2019-08-10 20:15:00 185.42 cm [facility] [place] Weight 2019-08-10 20:15:00 [facility] [place] BMI Calculated 2019-08-10 20:15:00 Memori al [place] Procedures Procedure Date / Time Performed Performing Clinician [facility] Appendix operation [facility] Rem[facility] from [facility] appendix Plan of Care Planned Activity Planned Date Details Comments Source Diagnostic Test 2021-12-17 lipid panel, serum [facility] Pending 00:00:00 [code = lipid [facility] Cl[facility] cs panel, serum] Diagnostic Test 2021-12-17 vitamin D, [place] [facility] Pending 00:00:00 25-hydroxy, total, Hospital Clinics serum [code = vitamin D, 25-hydroxy, total, serum] Diagnostic Test 2021-12-17 TSH + free T4, [facility] Pending 00:00:00 serum [code = TSH Hospital C linics + free T4, serum] Diagnostic Test 2021-12-17 vitamin B12 + [facility] Pending 00:00:00 folate, serum or Hospital Cl inics blood [code = vitamin B12 + folate, serum or blood] Diagnostic Test 2021-12-17 testosterone, free [facility] Pending 00:00:00 + total, serum Hospital Clin ics [code = testosterone, free + total, serum] Diagnostic Test 2021-12-17 HbA1c (hemoglobin [facility] Pending 00:00:00 A1c), blood [code Hospital C linics = HbA1c (hemoglobin A1c), blood] Diagnostic Test 2021-12-17 PSA, serum or [facility] Pending 00:00:00 plasma [code = Hospital Clin ics PSA, serum or plasma] Diagnostic Test 2021-12-17 uric acid, serum [place] [facility] Pending 00:00:00 or plasma [code = Hospital C linics uric acid, serum or plasma] Diagnostic Test 2021-12-17 CMP, serum or [place] unity Pending 00:00:00 plasma [code = Hospital Clin ics CMP, serum or plasma] Diagnostic Test 2021-12-17 CBC w/ auto diff [facility] Pending 00:00:00 [code = CBC w/ Hospital Clin ics auto diff] Encounters Start End Encounter Admission Attending Care Care Encounter Source Date/Time Date/Time Type Type Clinicians Facility Department ID 2021-12-20 2021-12-20 Outpatient [facility] [id number] [place] 02:27:00 02:27:00 305 [facility] i [facility] Clin[facility] 2021-12-17 2021-12-17 Outpatient [facility] [id number] [place] 11:24:00 11:24:00 302 Commun i ty Hospita l Clinics 2021-12-17 2021-12-17 Outpatient [place] [facility] [id number] 00:00:00 00:00:00 Jeramie [id number] 2021-12-17 2021-12-17 [facility] [place] 00:00:00 00:00:00 [place] [facility] Comm uni MSN, TIMBER SKIDDER, Hospital - ty PHOTOGRAPH PRINTER-C: [address] [place] [facility] [address], [facility] [address], [place] MSN, PHOTOGRAPH PRINTER-C [id number] , Ph. 2021-12-11 2021-12-11 Outpatient [facility] [id number] [place] 12:11:00 12:11:00 224 Commun i ty Hospita l [facility] 2021-12-11 2021-12-11 Outpatient [place] [facility] [id number] 00:00:00 00:00:00 Jeramie [id number] 2021-12-11 2021-12-11 [facility] [place] 00:00:00 00:00:00 [place] [facility] uni MSN, TIMBER SKIDDER, Hospital - ty PHOTOGRAPH PRINTER-C: [address] [place] [facility]pi [facility], Clinic s [address], [place] [address], [place] MSN, PHOTOGRAPH PRINTER-C [id number] , Ph. 2021-11-15 2021-11-15 Outpatient [facility] [id number] [place] 04:47:00 04:47:00 129 Commun i ty Hospita l [facility] 2021-10-11 2021-10-11 Outpatient [facility] [id number] [place] 03:02:00 03:02:00 225 Commun i ty Hospita l Clinics 2021-09-23 2021-09-23 Outpatient [facility] [id number] [place] 05:03:00 05:03:00 207 Commun i ty Hospita l Clinics 2021-09-23 2021-09-23 Outpatient [place] [facility] [id number] 00:00:00 00:00:00 [place]amie [id number] 2021-09-23 2021-09-23 [facility] [place] [id number] [place] 00:00:00 00:00:00 [place], [facility] Comm uni MSN, TIMBER SKIDDER, Hospital - ty PHOTOGRAPH PRINTER-C: [address] [place] [facility], Clinic s [address], [place] [address], [place], [place] MSN, PHOTOGRAPH PRINTER-C [id number] , Ph. 2020-12-24 2020-12-24 Outpatient [facility] [id number] [place] 02:49:00 02:49:00 309 Commun i ty Hospita l Clinics 2020-12-24 2020-12-24 Outpatient [place] [facility] [id number] 00:00:00 00:00:00 Jeram[place] [id number] 2020-12-24 2020-12-24 [facility] [place] 00:00:00 00:00:00 [place], [facility] Comm uni MSN, TIMBER SKIDDER, Hospital - ty PHOTOGRAPH PRINTER-C: [address] [place] [facility], Clinic s [address], [place] [address], [place], [place] MSN, PHOTOGRAPH PRINTER-C [id number] , Ph. 2020-10-03 2020-10-03 Outpatient [facility] [id number] [place] 02:56:00 02:56:00 217 Commun i ty Hospita [facility] 2019-09-28 2019-09-28 Ambulatory nullFlavo MNA [id number] [facility] 21:30:00 21:30:00 [facility] 2019-09-28 2019-09-28 Ambulatory nullFlavo MNA [id number] [facility] 21:15:00 21:15:00 [facility] 2019-09-28 2019-09-28 Outpatient MHIE MHIE [id number] [facility] 15:30:00 15:30:[address] [facility] 2019-09-28 2019-09-28 Outpatient ZACK GomesSCHER MHMISCHER [id number] 15:30:00 15:30:00 Efra 03 [facility] 2019-09-28 2019-09-28 Outpatient MHIE MHIE [id number] [facility] 15:15:00 15:15:[address] [facility] 2019-09-28 2019-09-28 Outpatient ZACK GomesSCHTOSHIA MHMISCHER [id number] 15:15:00 15:15:00 Efra 02 [facility] 2019-09-26 2019-09-26 Outpatient Bushra [facility] [id number] [place] 07:36:00 13:00:00 [facility] 2019-08-17 2019-08-18 Outpatient nullFlavo MNA [id number] [facility] 21:00:00 04:59:59 r Neurology 01 [facility] 2019-08-17 2019-08-17 Outpatient ZAKC GomesSCHER MHMISCHER [id number] 16:00:00 23:59:59 Efra [facility] 2019-08-17 2019-08-17 Outpatient MHIE MHIE [id number] [facility] 16:00:00 16:00:00 [facility] 2019-08-10 2019-08-11 Outpatient nullFlavo MNA [id number] [facility] 20:30:00 04:59:59 r Neurology 00 [place] 2019-08-10 2019-08-10 Outpatient ZACK GomesSCHER MHMISCHER [id number] 15:30:00 23:59:59 Efra 00 [facility] Results Test Description Test Time Test Comments Results Result Comments Source rapid flu (A+B) 2020-12-24 14:02:09 Test Item Value Reference Range Interpretation Comme nts FLU A (test code = FLU A) negative FLU B (test code = FLU B) negative [facility]
[2023-02-15 23:55] LABS: Potassium 3.7 mEq/L (3.5-5.1)
--- NOTE | 2023-02-16 00:11 | ER ---
Nurse's Notes [facility] Name: Mahad Marks Age: 42 yrs Sex: Male : 1980 Arrival Date: 02/15/2023 Time: 21:23 Bed 18 Private MD: Diagnosis: Urinary Retention Presentation: 02/15 22:00 Chief complaint: Patient states: "I had 3 hernia repairs done today and I haven't peed. mb9 They told me if I hadn't peed by 8 to come in.". Coronavirus screen: Vaccine status: Patient reports being unvaccinated. Client denies travel out of the [place] in the last 14 days. At this time, the client does not indicate any symptoms associated with coronavirus-19. Ebola Screen: Patient negative for fever greater than or equal to 101.5 degrees Fahrenheit, and additional compatible Ebola Virus Disease symptoms Patient denies exposure to infectious person. Patient denies travel to an Ebola-affected area in the 21 days before illness onset. No symptoms or risks identified at this time. Initial Sepsis Screen: Does the patient meet any 2 criteria? HR > 90 bpm. No. Patient's initial sepsis screen is negative. Does the patient have a suspected source of infection? Yes: Skin breakdown/wound Other: surgery today. Risk Assessment: Do you want to hurt yourself or someone else? Patient reports no desire to harm self or others. Onset of symptoms is unknown. 22:00 Method Of Arrival: Ambulatory mb9 22:00 Acuity: JORDIN 4 mb9 Triage Assessment: 22:02 General: Appears in no apparent distress. comfortable, Behavior is calm, cooperative, mb9 appropriate for age. Pain: Denies pain. EENT: No deficits noted. No signs and/or symptoms were reported regarding the EENT system. Neuro: No deficits noted. Cardiovascular: No deficits noted. Respiratory: Airway is patent Respiratory effort is even, unlabored, Respiratory pattern is regular, symmetrical. GI: No deficits noted. No signs and/or symptoms were reported involving the gastrointestinal system. : Reports inability to void. Derm: No deficits noted. No signs and/or symptoms reported regarding the dermatologic system. Musculoskeletal: No deficits noted. No signs and/or symptoms reported regarding the musculoskeletal system. Historical: - Allergies: 22:01 Codeine; mb9 - PMHx: 22:01 GERD; Hyperlipidemia; Hypertension; mb9 - PSHx: 22:01 Hernia repair; Appendectomy; mb9 - Immunization history:: Client reports having NOT received the Covid vaccine. - Social history:: Smoking status: Patient denies any tobacco usage or history of. Screenin:00 [facility] ED Fall Risk Assessment (Adult) History of falling in the last 3 months, ha1 including since admission No falls in past 3 months (0 pts) Confusion or Disorientation No (0 pts) Intoxicated or Sedated No (0 pts) Impaired Gait No (0 pts) Mobility Assist Device Used No (0 pt) Altered Elimination No (0 pt) Score/Fall Risk Level 0 - 2 = Low Risk Oriented to surroundings, Maintained a safe environment, Educated pt \\T\\ family on fall prevention, incl call for assistance when getting out of bed. 02/16 00:29 Abuse screen: Denies threats or abuse. Denies injuries from another. Nutritional ha1 screening: No deficits noted. Tuberculosis screening: No symptoms or risk factors identified. Assessment: 02/15 23:00 Reassessment: Patient and/or family updated on plan of care and expected duration. Pain ha1 level reassessed. Patient is alert, oriented x 3, equal unlabored respirations, skin warm/dry/pink. 02/16 00:00 Reassessment: Patient and/or family updated on plan of care and expected duration. Pain ha1 level reassessed. Patient is alert, oriented x 3, equal unlabored respirations, skin warm/dry/pink. Patient states feeling better. Patient states symptoms have improved. 00:27 Reassessment: pt. being discharge. Guerra stays in place as ordered by care provider. 1 Vital Signs: 02/15 22:00 BP 143 / 99; Pulse 116; Temp 99.2(O); Pulse Ox 99% ; Weight 104.33 kg; Height 6 ft. 1 mb9 in. ; Pain 0/10; 23:00 BP 142 / 95; Pulse 100; Resp 18 S; Pulse Ox 99% on R/A; ha1 02/16 00:05 BP 117 / 78; Pulse 64; Resp 18 S; Pulse Ox 99% on R/A; 1 02/15 22:00 Body Mass Index 30.34 (104.33 kg, 185.42 cm) [facility] 02/15 22:00 Pain Scale: Adult 9 ED Course: 02/15 21:26 Patient arrived in ED. jj6 21:39 Ed Warren PA is PHCP. [facility] 21:39 Momo Pichardo MD is Attending Physician. [facility] 22:00 Patient has correct armband on for positive identification. Placed in gown. Bed in low ha1 position. Call light in reach. Side rails up X 1. 22:01 Triage completed. 9 22:02 Arm band placed on right wrist. 9 22:06 Colleen Bo, RN is Primary Nurse. ha1 22:45 Guerra cath inserted, using sterile technique, 16 Fr., by tx, balloon inflated, to ha1 gravity drainage. 23:38 Inserted saline lock: 20 gauge in left antecubital area, using aseptic technique. Blood 1 collected. 23:39 BMP Sent. [facility] 02/16 00:09 Igor Garibay MD is Referral Physician. [facility] 00:29 No provider procedures requiring assistance completed. IV discontinued, intact, ha1 bleeding controlled, No redness/swelling at site. Pressure dressing applied. Administered Medications: No medications were administered Medication: 00:30 VIS not applicable for this client. ha1 Outcome: 00:10 Discharge ordered by . [facility] 00:29 Discharged to home ambulatory, with family. ha1 00:29 Condition: stable 00:29 Discharge instructions given to patient, family, Instructed on discharge instructions, follow up and referral plans. Demonstrated understanding of instructions, follow-up care. 00:31 Patient left the ED. ha1 Signatures: Ed Warren PA PA [facility] Daisy Delatorre j Colleen Bo, RN RN 1 Rosalina Verma RN RN 9 Ana Ruiz [facility]
--- NOTE | 2023-02-16 00:11 | EDPHYS ---
Physician Documentation [facility] Name: Mahad Marks Age: 42 yrs Sex: Male : 1980 Arrival Date: 02/15/2023 Time: 21:23 Bed 18 Private MD: ED Physician Momo Pichardo HPI: 02/15 21:51 This 42 yrs old Male presents to ER via Ambulatory with complaints of Post Surgical jmm Pain, POST SURGICAL URINARY RETENTION, HERNIA SURGERY 02/15/[address] HINES. 21:51 The patient presents with urinary symptoms, retention. Onset: The symptoms/episode jmm began/occurred today, 12 hour(s) ago. This is a 42 year old male with a history of GERD, HLP, HTN, s/p hernia repair today. Patient left around noon. Has not urinated since then. . Historical: - Allergies: 22:01 Codeine; mb9 - PMHx: 22:01 GERD; Hyperlipidemia; Hypertension; mb9 - PSHx: 22:01 Hernia repair; Appendectomy; mb9 - Immunization history:: Client reports having NOT received the Covid vaccine. - Social history:: Smoking status: Patient denies any tobacco usage or history of. ROS: 21:51 Constitutional: Negative for fever, chills, and weight loss, Cardiovascular: Negative jmm for chest pain, palpitations, and edema, Respiratory: Negative for shortness of breath, cough, wheezing, and pleuritic chest pain. 21:51 : Positive for urinary symptoms. 21:51 All other systems are negative. Exam: 21:51 Constitutional: This is a well developed, well nourished patient who is awake, alert, jmm and in no acute distress. Head/Face: atraumatic. Eyes: EOMI, no conjunctival erythema appreciated ENT: Moist Mucus Membranes Neck: Trachea midline, Supple Chest/axilla: Normal chest wall appearance and motion. Cardiovascular: Regular rate and rhythm. No edema appreciated Respiratory: Normal respirations, no respiratory distress appreciated Abdomen/GI: Non distended Back: Normal ROM Skin: General appearance color normal MS/ Extremity: Moves all extremities, no obvious deformities appreciated, no edema noted to the lower extremities Neuro: Awake and alert Psych: Behavior is normal, Mood is normal, Patient is cooperative and pleasant Vital Signs: 22:00 BP 143 / 99; Pulse 116; Temp 99.2(O); Pulse Ox 99% ; Weight 104.33 kg; Height 6 ft. 1 [facility] in. ; Pain 0/10; 23:00 BP 142 / 95; Pulse 100; Resp 18 S; Pulse Ox 99% on R/A; ha1 02/16 00:05 BP 117 / 78; Pulse 64; Resp 18 S; Pulse Ox 99% on R/A; ha1 02/15 22:00 Body Mass Index 30.34 (104.33 kg, 185.42 cm) [facility] 02/15 22:00 Pain Scale: Adult 9 MDM: 02/15 21:51 Patient medically screened. [facility] 02/16 01:14 Differential diagnosis: urinary retention. Data reviewed: vital signs, nurses notes, [facility] lab test result(s). ED course: Guerra catheter placed, around 800 ml urine output. Creat was wnl. Advised to follow up with Dr. Hines in clinic and otherwise given strict return precautions. Patient understood and agrees with the plan of care. . 02/15 23:01 Order name: BMP; Complete Time: 00:07 [facility] 02/15 21:52 Order name: Guerra; Complete Time: 23:03 [facility] 02/15 22:49 Order name: Leg Bag; Complete Time: 00:00 [facility] 02/15 23:01 Order name: Saline Lock; Complete Time: 23:39 [facility] Administered Medications: No medications were administered Disposition: 01:55 Co-signature as Attending Physician, Momo Pichardo MD . rt Disposition Summary: 02/16/23 00:10 Discharge Ordered Location: Home [facility] Condition: Stable [facility] Diagnosis - Urinary Retention [facility] Followup: [facility] - With: Igor Hines MD - When: 1 - 2 days - Reason: Recheck today's complaints, Continuance of care, Re-evaluation by your physician Discharge Instructions: - Discharge Summary Sheet [facility] - Indwelling Urinary Catheter Care, Adult jm - Acute Urinary Retention, Male [facility] Forms: - Medication Reconciliation Form [facility] - Thank You Letter [facility] - Antibiotic Education [facility] - Prescription Opioid Use [facility] Signatures: Dispatcher [employer] EDMS Ed Warren PA PA jmm Breneman, Mary Beth RN RN mb9 Momo Pichardo MD MD rt
[2023-02-16 00:50] VITALS: TEMP 99.2; O2SAT 99
[2023-02-16 00:57] VITALS: BP 117/78
--- NOTE | 2023-02-17 14:12 | EKG ---
Test Date: 2023-02-15 Test Time: 09:50:04 [place] Cutter: LEOBARDO MEASUREMENT RESULTS: Intervals: Rate: 62 GA: 188 QRSD: 86 QT: 404 QTc: 410 [place]: P: 44 GA: 188 QRS: -5 T: 40 INTERPRETIVE STATEMENTS: Normal sinus rhythm with sinus arrhythmia Normal ECG Compared to ECG 02/15/2023 09:48:07 Sinus bradycardia no longer present Electronically Signed On 02-17-23 14:09:22 CDT by Kwaku Artis
== END 2023-02-16 00:31 | disposition home or self-care (01) ==
LOC: ER 21:23
DX: R33.9 Retention of urine, unspecified (principal); Z98.890 Other specified postprocedural states; I10 Essential (primary) hypertension; Z88.5 Allergy status to narcotic agent
CPT/HCPCS: 36415; 51702; 80048; 93005; 99284